=== PATIENT | female | born 1985 | race Caucasian/White ===

== ENCOUNTER → 2016-07-31 | Outpatient (CLI) | payer BC ==
[~2016-07-31] MED LIST: CPR500 PO; DOCU100C31 PO; MTR500 PO; MTR600X PO; OXYC-57 PO; PRENTAB26 PO; SERT50TA PO
[2016-07-31 10:50] LABS: ALT/SGPT 18 U/L (12-78); BLOOD UREA NITROGEN 10 mg/dl (7-18); BUN/CREATININE RATIO 15.8 (10-20); CALCIUM 8.9 mg/dl (8.5-10.1); CARBON DIOXIDE 26 mmol/L (21-32); CHLORIDE 103 mmol/L (98-107); CHOLESTEROL 164 mg/dl (0-200); CREATININE 0.64 mg/dl (0.60-1.20); GLUCOSE 101 mg/dl (70-99); POTASSIUM 3.7 mmol/L (3.5-5.1); SODIUM 140 mmol/L (136-145)
[2016-07-31 11:03] LABS: ALKALINE PHOSPHATASE 84 U/L (45-117); AST/SGOT 14 U/L (15-37); CHOLESTEROL/HDL RATIO 2.7; HDL CHOLESTEROL 61 mg/dl; LDL CHOLESTEROL CALCULATED 94 mg/dl; TRIGLYCERIDES 46 mg/dl (0-150); VERY LOW DENSITY LIPOPROT CALC 9 mg/dl
== END | disposition home or self-care (01) ==
LOC: C.LABSPEC 16:28
PROVIDERS: ATTEND Family Medicine
DX: Z00.00 Encounter for general adult medical examination without abnormal findings (principal)

== ENCOUNTER → 2016-09-05 | Outpatient (CLI) | payer BC, OTHER ==
[2016-09-05 08:40] LABS: URINE APPEARANCE CLEAR (CLEAR); URINE BILIRUBIN NEG (NEG); URINE COLOR YELLOW; URINE NITRITE NEG (NEG); URINE PH 6.5 (4.5-7.5); UROBILINOGEN NEG (NEG)
[2016-09-05 08:52] LABS: MANUAL MICROSCOPIC REQUIRED? NO; REVIEW REQ? NO
[2016-09-05 09:20] LABS: PARTIAL THROMBOPLASTIN RATIO 1.1; PROTHROMBIN TIME (PATIENT) 10.7 SECONDS (9.0-12.0)
[2016-09-05 09:25] LABS: ALT/SGPT 17 U/L (12-78); AST/SGOT 11 U/L (15-37); BLOOD UREA NITROGEN 13 mg/dl (7-18); BUN/CREATININE RATIO 23.4 (10-20); CALCIUM 8.8 mg/dl (8.5-10.1); CARBON DIOXIDE 30 mmol/L (21-32); CHLORIDE 106 mmol/L (98-107); CREATININE 0.54 mg/dl (0.60-1.20); GLUCOSE 70 mg/dl (70-99); POTASSIUM 3.7 mmol/L (3.5-5.1); SODIUM 141 mmol/L (136-145)
[2016-09-05 09:28] LABS: ALB/GLOB RATIO 1.1 (0.9-2); ALKALINE PHOSPHATASE 73 U/L (45-117)
[2016-09-07 13:52] LABS: QUANTIF TB AG-NIL <0.00 IU/ML; QUANTIFERON NIL 0.08 IU/ML
--- NOTE | 2016-09-17 08:11 | CODING QUERY NO DIAGNOSIS ---
TREATMENT RENDERED WITHOUT A DIAGNOSIS : 1985 To promote full compliance with coding requirements relating to patient care, physician participation is requested in all cases of negative turner uncertainty. Please assist us with providing a diagnosis/symptom for the test(s) below: A diagnosis/symptom was not documented on your Order. A valid diagnosis/symptom is required to bill all insurances. Please remember that we are unable to code a diagnosis of rule out, probable, possible, questionable, or suspected. Tests that require a diagnosis: DOS: 09/05/16 * COMPREHENSIVE METABO DIAGNOSIS: * PROTHROMBIN TIME PRO DIAGNOSIS: * PTT DIAGNOSIS: * UA CLEAN CATCH W/ CA DIAGNOSIS: * GLUC LESTER 2HR 75g NON DIAGNOSIS: Provider Signature: Date: Thank you Cande Wall Health Information Management Once completed, please kindly fax back to [phone] For questions please call [phone]
== END | disposition home or self-care (01) ==
LOC: C.LAB 08:00
PROVIDERS: ATTEND Surgery
DX: Z00.5 Encounter for examination of potential donor of organ and tissue (principal)

== ENCOUNTER → 2016-09-20 | Outpatient (CLI) | payer BC | END | disposition home or self-care (01) | LOC: C.LAB 07:29 | PROVIDERS: ATTEND Obstetrics & Gynecology | DX: N92.6 Irregular menstruation, unspecified (principal) ==

== ENCOUNTER → 2016-11-15 | Outpatient (CLI) | payer BC ==
[2016-11-15 08:48] LABS: BASO % 0.4 %; BASO ABS # 0.02 K/uL (0-0.2); COMPLETE YES; EOS % 9.1 %; HEMATOCRIT 42.2 % (37-47); LYMPH % 29.3 %; LYMPH ABS # 1.62 K/uL (1.2-3.4); MEAN CELL VOLUME 85.8 fL (80-100); MEAN CORPUSCULAR HEMOGLOBIN 28.3 pg (25-34); MEAN CORPUSCULAR HGB CONC 32.9 g/dl (32-36); MEAN PLATELET VOLUME 9.6 fL (7.4-10.4); MONO % 9.8 %; NEUT % 51.4 %; PLATELET COUNT 296 K/uL (130-400); RED BLOOD COUNT 4.92 M/uL (4.2-5.4); WHITE BLOOD COUNT 5.52 K/uL (4.8-10.8)
[2016-11-15 09:04] LABS: CALCIUM 8.5 mg/dl (8.5-10.1)
[2016-11-15 09:08] LABS: BLOOD UREA NITROGEN 14 mg/dl (7-18); BUN/CREATININE RATIO 18.7 (10-20); CARBON DIOXIDE 27 mmol/L (21-32); CHLORIDE 107 mmol/L (98-107); CREATININE 0.75 mg/dl (0.60-1.20); GLUCOSE 76 mg/dl (70-99); POTASSIUM 3.5 mmol/L (3.5-5.1); SODIUM 142 mmol/L (136-145)
== END ==
LOC: C.LAB 12:30
PROVIDERS: ATTEND Obstetrics & Gynecology
DX: Z01.812 Encounter for preprocedural laboratory examination (principal)

== ENCOUNTER 2016-11-26 07:34 | Inpatient (IN) | payer BC ==
[2016-11-19 12:14] VITALS: BMI 25.0
[~2016-11-26] VITALS: Ht 167.6 cm; Wt 72.3 kg
[2016-11-26] VITALS (7 sets, daily range): BP systolic 92–113; BP diastolic 51–68; PULSE 77–88; TEMP 36.7–36.9; O2SAT 94–97; Ht 167.6 cm; Wt 72.3 kg
[~2016-11-26 07:34] MED LIST changes: +ATROPINE SULFATE 0.1 MG/ML 5ML SYR IV PRN; +CIPROFLOXACIN / D5W 400 MG IV SCH; +CLINDAMYCIN 600 MG/54 ML D5W 50 ML IV SCH; -CPR500 PO; +DEXAMETHASONE SOD INJ 4 MG/ML VIAL ONE; -DOCU100C31 PO; +EpHEDrine SULFATE 50MG/5ML SYR ONE; +EpHEDrine SULFATE INJ 50 MG/ML AMP IV PRN; +FENTANYL CITRATE INJ 50 MCG/1 ML 2 ML VIAL ONE; +GLYCOPYRROLATE INJ 0.2 MG/ML VIAL ONE; +HYDROmorphone INJ 1 MG/ML SYR IV PRN; +KETOROLAC TROMETHAMINE 30 MG/ML VIAL ONE; +LACTATED RINGER'S 1000ML 1,000 ML IV SCH; +LACTATED RINGER'S 1000ML 500 ML IV ONE; +LARYING-O-JET KIT (LTA) ONE; +LIDOCAINE HCL 2% 2 ML VIAL (20MG/ML) ONE; +MIDAZOLAM HCL 1 MG/ML 2ML VIAL ONE; -MTR500 PO; -MTR600X PO; +NEOSTIGMINE METHYLSULFATE 5 MG/5 ML SYR ONE; +ONDANSETRON INJ 2 MG/ML 2 ML VIAL IV PRN; +ONDANSETRON INJ 2 MG/ML 2 ML VIAL ONE; -OXYC-57 PO; -PRENTAB26 PO; +PROPOFOL IV EMULSION 10 MG/ML 20 ML VIAL IV ONE; +ROCURONIUM BROMIDE 10 MG/ML 5 ML VIAL ONE
[2016-11-26] MEDS ORDERED: BUPIVACAINE 0.5 % 5 MG/1 ML MPF 30ML VIAL ONE (08:11)
--- NOTE | 2016-11-26 08:31 | History & Physical Bridge Note ---
H&P Re-Evaluation Bridge Note: I have examined the patient, reviewed the History & Physical and in the interval since the performance of the History & Physical I have noted the following changes of clinical significance: No changes noted
[2016-11-26] MEDS ORDERED: FENTANYL CITRATE INJ 50 MCG/1 ML 2 ML VIAL ONE (09:29)
[2016-11-26] MEDS ORDERED: METHYLENE BLUE 1% 10 ML VIAL ONE (09:53)
[2016-11-26] MEDS ORDERED: TISSEEL FIBRIN SEALANT 4ML TOP ONE (10:23)
[2016-11-26] MEDS ORDERED: LACTATED RINGER'S 1000ML 1,000 ML IV SCH (10:32)
[2016-11-26] MEDS ORDERED: D5W AND LACTATED RINGERS 1,000 ML IV SCH (10:32)
--- NOTE | 2016-11-26 10:34 | Discharge Instructions ---
Discharge Instructions Date of Service Nov 26, 2016. Admission Reason for Admission: Pelvic Pain, Menorrhagia, Ciniii Discharge Discharge Diagnosis / Problem: menorrhagia Discharge Goals Goal(s): Routine recovery after surgery Activity Recommendations Activity Limitations: per Instructions/Follow-up section . Instructions / Follow-Up Instructions / Follow-Up POST OPERATIVE: BOWEL FUNCTION/MEDICATIONS: 1. Constipation pain and discomfort are the most common complaints 5-7 days after surgery. Points 2-6 address the things that can help. 2. Chewing gum can help stimulate the gut and help improve digestion and motility. 3. Milk of Magnesia 1-2 times per day until return of bowel function. 4. Colace is a stool softener that helps. Taking this 2-3 times per day until bowel function returns to normal is highly recommended. 5. Dulcolax is a laxative that may be used if several days have passed without a bowel movement. Alternatively Miralax may be used daily instead. 6. Drink plenty of fluids as this will also reduce constipation. 7. Narcotic pain medications will be prescribed by your physician. They are safe to use and we encourage you to use them. If you are not allergic, ibuprofen will also be prescribed. Many patients will be able to transition off of the narcotic medications to ibuprofen by postoperative day 3. ACTIVITY RECOMMENDATIONS: 1. Get plenty of rest and listen to your body. If you are tired, take a nap. 2. You may shower, but do not take a tub bath until you see your doctor at the 2 week post operative visit. 3. Absolutely NO intercourse and nothing in the vagina until you are examined by your doctor at the 6 week visit. At that visit it will be determined when such activities can be resumed. This can range from 6-12 weeks after your surgery depending on healing time. 4. The main physical activity in the first week should be walking. By the second week you can slowly increase activity. There are no limits on walking up and down stairs. 5. Do not lift more than 5-10 lbs for 4 weeks. Remember the "one-handed rule", i.e. if you can lift something with only one hand it's likely okay. 6. Minimize fish straightener like vacuuming and exercising for 4 weeks. "Overdoing it" can lead to incisions not healing, pain and vaginal bleeding , so again, listen to your body. 7. Driving can be resumed when you feel able. Do not drive within 24 hours of taking a narcotic medication. EXPECTATIONS: 1. Vaginal spotting, bleeding and discharge are common after surgery. There may even be an odor to the discharge which is often related to sutures used in the vagina. If you experience heavy vaginal bleeding, call the office number day or night [phone]. 2. Bladder discomfort is common after surgery from the catheter. This usually resolves in 1-2 weeks. 3. By the end of the 3rd or 4th week you should be feeling much better. It may take up to 6 weeks for your energy levels to return to normal. 4. Narcotic medications have side effects such as: dizziness, headache, nausea and/or vomiting. If you suspect your pain medication is causing problems, call our office and we may be able to prescribe an alternate medication. 5. The skin incisions are often covered with a liquid bandage. This will gradually peel off over time. CALL THE OFFICE IF YOU HAVE ANY OF THE FOLLOWIN. Temperature of 101 degrees or higher. 2. Severe abdominal or pelvic pain not relieved by pain medication. 3. Persistent nausea or vomiting. 4. Increased pain with urination or difficulty urinating. 5. Bright red bleeding that soaks more than 1 pad per hour. CONTACT PHONE NUMBERS: Main Office: [phone] Surgical Nurse: [phone] extension [phone] Avoid all tobacco products. If you need help to stop smoking, call [place]'s FREE QUITLINE at . This is a free call. Current Hospital Diet Patient's current hospital diet: Discharge Diet Recommended Diet: Regular Diet Procedures Procedures Performed: Total Laparoscopic Hysterectomy, bilateral salpingectomy with use of Davinci, cystoscopy. Pending Studies Studies pending at discharge: no Medical Emergencies . Who to Call and When: Medical Emergencies: If at any time you feel your situation is an emergency, please call 911 immediately. . Non-Emergent Contact Non-Emergency issues call your: Computer Education Teacher . . "Provider Documentation" section prepared by Harman Singleton. . VTE Core Measure Inpt VTE Proph given/why not?: Amrit Prado, SCD's
[2016-11-26] MEDS ORDERED: MTR600X PO (10:35)
[2016-11-26] MEDS ORDERED: OXYC-57 PO (10:35)
--- NOTE | 2016-11-26 10:43 | [facility] Operative Report ---
Operative Report Operative Date Nov 26, 2016. Pre-Operative Diagnosis Severe menorrhagia, pelvic pain. Post-Operative Diagnosis same Procedure(s) Performed TLH, bilateral salpingectomy, cystoscopy Surgeon Dr. Singleton Emergency Dispatch Operator Surgeon(s) None Estimated Blood Loss 20ml Findings Patient was given a general anesthetic preoperative antibiotics as well prepped and draped in dorsolithotomy position in yellowfin Jono stirrups. Bladder drained with Bell catheter the V care attached to the cervix. Procedure is begun by making a subumbilical incision with the scalpel using open Technique We Did a Cut down Cutting down through Subcutaneous Fat to the Fascia in the Midline Splitting the Rectus Muscles and Entering the Peritoneal Cavity without Difficulty. 2 Natural Bridge Stitches Are Placed in the Fascia of 0 Vicryl and Then Blunt Tipped Trocar Placed Balloon Then Inflated with Air and Then CO2 Gas to Insufflate the Abdomen Findings Upper Abdomen Normal No Sign of Visceral Organ Injury Deep Trendelenburg Position and Obtained the Uterus Appeared Normal As Did the Adnexa There Was No Evidence of Endometriosis or Scarring. Placed 2 Robotic Ports One on the Left One on the Right and Then a Left Upper Quadrant Accessory Port Non-Bladed. Robot Was Then Docked Arm #1 Was the Monopolar Robert and Arm #2 was bipolar [place]. Using the V care we could manipulate the uterus fairly easily identified the ureter location on both left and right sides seem to follow a normal course. Remove the fallopian tubes in the usual fashion and then removed the separately through the accessory ports. Identified the blood supply of the utero-ovarian coagulated this distal to the left ovary and then cut this most monopolar robert. Same process with the round ligament uterine vessels were then skeletonized bladder flap was sharply dissected away. We then coagulated the left uterine vein and artery with the bipolar [place]. This was then cut. We were well away from the ureter at this stage. The exact same process was followed on the right once both uterine vessels had been secured we made an anterior colpotomy with the monopolar robert. This was then completed to separate the cervix from the vagina uterus was then pulled into the vagina and removed. 8 sponge in a glove was then placed to maintain pneumoperitoneum Instrument exchange was then done. An EGA needle powder truck driver placed in arm #1 arm # 2 was the [employer] grasper. Using a 12 inch 20V LOC 90 day suture we close the cuff from left to right aqua right to left taking care to ensure at least 1 cm full-thickness bites of vaginal mucosa. Suture was then cut so there was no detail and needle removed for the accessory port after generous irrigation and suction we then performed cystoscopy. Bell catheter removed and cystoscope performed bladder appeared normal and were no sutures or defects or lesions and good strong jets of bluish dye from both left and right ureter openings. Cystoscope removed and a new Bell catheter placed sponge and been removed and glove from the vagina already. At this stage we then went back to the robotic console and we used 4 mL of Tisseel for hemostasis hemostasis was excellent at this stage. Should be noted we suction irrigated prior to this. This stage we then undocked and removed the instruments and undocked the robot. Gas was allowed to escape ports were removed and incisions injected with 0.5% Marcaine that should also be noted we did a low CO2 test prior to removing the camera and things were hemostatic. Incision at the umbilicus the fascia was closed with 0 Vicryl same process in the left upper quadrant incision and then 4-0 subcuticular Monocryl closures with Dermabond applied urine clear at the end of the procedure and sponges counts correct Specimens A: Uterus, cervix, bilateral tubes. Drains Bell Anesthesia General Disposition Recovery Room / PACU I attest to the content of the Intraoperative Record and any orders documented therein. Any exceptions are noted below.
[2016-11-26] MEDS ORDERED: SIMETHICONE 80 MG CHEW PO PRN (10:45)
[2016-11-26] MEDS ORDERED: BISACODYL 10 MG SUPP PR PRN (10:45)
[2016-11-26] MEDS ORDERED: ONDANSETRON INJ 2 MG/ML 2 ML VIAL IV PRN (10:45)
[2016-11-26] MEDS ORDERED: PROMETHAZINE HCL INJ 12.5 MG in SODIUM CHLORIDE 0.9% 50ML 50 ML IV PRN (10:45)
[2016-11-26] MEDS ORDERED: IBUPROFEN 600 MG TAB PO PRN (10:45)
[2016-11-26] MEDS ORDERED: ACETAMINOPHEN 325 MG TAB PO PRN (10:45)
[2016-11-26] MEDS ORDERED: ZOLPIDEM TARTRATE 5 MG TAB PO PRN (10:45)
[2016-11-26] MEDS ORDERED: KETOROLAC TROMETHAMINE 30 MG/ML VIAL IV. PRN (10:45)
[2016-11-26] MEDS ORDERED: PROMETHAZINE HCL INJ 25 MG in SODIUM CHLORIDE 0.9% 50ML 50 ML IV PRN (10:45)
[2016-11-26] MEDS ORDERED: OXYCODONE/ACETAMINOPHEN 5-325 TAB PO PRN ×2 (10:45)
[2016-11-26] MEDS ORDERED: MAGNESIUM HYDROXIDE SUSP 30 ML UDC PO PRN (10:45)
[2016-11-26] MEDS ORDERED: MEPERIDINE HCL 50 MG/ML CARP IV PRN ×2 (10:45)
[2016-11-26] MEDS: FENTANYL CITRATE INJ 50 MCG/1 ML 2 ML VIAL IV PRN ×4 (11:15→11:30)
--- NOTE | 2016-11-26 11:37 | Anesthesiology Progress Note ---
Anesthesia Post Op Note Date & Time Nov 26, 2016 at 11:36 Vital Signs Pain Intensity: 3 Vital Signs Past 12 Hours Date Time Temp Pulse Resp B/P (MAP) Pulse Ox O2 Delivery O2 Flow Rate FiO2 11/26/16 10:59 67 20 98 11/26/16 10:59 67 20 11/26/16 10:55 108/59 11/26/16 10:54 64 13 96 11/26/16 10:54 64 13 11/26/16 10:51 102/58 11/26/16 10:49 61 20 11/26/16 10:49 61 20 94 11/26/16 10:45 108/58 11/26/16 10:44 62 19 80 11/26/16 10:44 62 19 11/26/16 10:41 97/43 11/26/16 10:39 36.0 69 16 97/43 99 Mask 10 11/26/16 10:39 74 15 11/26/16 10:39 75 15 99 11/26/16 07:49 36.9 77 20 101/58 (72) 97 Room Air Notes Mental Status: alert / awake / arousable, participated in evaluation Pt Amnestic to Procedure: Yes Nausea / Vomiting: adequately controlled Pain: adequately controlled Airway Patency, RR, SpO2: stable & adequate BP & HR: stable & adequate Hydration State: stable & adequate Anesthetic Complications: no major complications apparent
[2016-11-26] MEDS ORDERED: IV FLUIDS COMPLETED PRN (14:15)
[2016-11-26] MEDS ORDERED: DOCUSATE SODIUM 100 MG CAP PO SCH (21:00)
[2016-11-27] MEDS ORDERED: ENOXAPARIN 40 MG/0.4 ML SYR SQ SCH (09:00)
--- NOTE | 2016-12-01 08:13 | Discharge Summary ---
Discharge Summary Date of Service Dec 01, 2016. Discharge Summary Patient had a laparoscopic hysterectomy on 11/26/2016 this was uncomplicated. Patient was ambulating tolerating an oral diet and voiding had no extremity pain pain was well controlled minimal bleeding Physical exam vital signs stable afebrile Impression and plan discharge home on the same day of surgery Percocet and Motrin discharge instructions reviewed
== END 2016-11-26 17:50 | disposition home or self-care (01) | DRG 741 ==
LOC: C.ACU 07:34 → UNDOADMOB 10:33 → C.MS4N 10:33 → INTOOBSV 10:33 → OBSVTOIN 10:33 → ENRESERV 11:29 → UNDOADMOB 12:15 → C.MS4N 12:15 → UNDODISOB 17:50
PROVIDERS: ADMIT Obstetrics & Gynecology; ATTEND Obstetrics & Gynecology
PROC: 0UTC7ZZ Resection of Cervix, Via Natural or Artificial Opening (ICD-10-PCS; principal; 2016-11-26 09:10)
PROC: 0UT7FZZ Resection of Bilateral Fallopian Tubes, Via Natural or Artificial Opening With Percutaneous Endoscopic Assistance (ICD-10-PCS; principal; 2016-11-26 09:10)
PROC: 0UT9FZZ Resection of Uterus, Via Natural or Artificial Opening With Percutaneous Endoscopic Assistance (ICD-10-PCS; principal; 2016-11-26 09:10)
PROC: 8E0W4CZ Robotic Assisted Procedure of Trunk Region, Percutaneous Endoscopic Approach (ICD-10-PCS; principal; 2016-11-26 09:10)
DX: D06.9 Carcinoma in situ of cervix, unspecified (principal); R10.2 Pelvic and perineal pain; N92.0 Excessive and frequent menstruation with regular cycle; Z97.5 Presence of (intrauterine) contraceptive device; Z87.891 Personal history of nicotine dependence; Z79.899 Other long term (current) drug therapy

== ENCOUNTER → 2017-01-07 | Outpatient (CLI) | payer BC ==
[~2017-01-07] MED LIST changes: -ATROPINE SULFATE 0.1 MG/ML 5ML SYR IV PRN; -CIPROFLOXACIN / D5W 400 MG IV SCH; -CLINDAMYCIN 600 MG/54 ML D5W 50 ML IV SCH; +CPR500 PO; -DEXAMETHASONE SOD INJ 4 MG/ML VIAL ONE; -EpHEDrine SULFATE 50MG/5ML SYR ONE; -EpHEDrine SULFATE INJ 50 MG/ML AMP IV PRN; -FENTANYL CITRATE INJ 50 MCG/1 ML 2 ML VIAL ONE; -GLYCOPYRROLATE INJ 0.2 MG/ML VIAL ONE; -HYDROmorphone INJ 1 MG/ML SYR IV PRN; -KETOROLAC TROMETHAMINE 30 MG/ML VIAL ONE; -LACTATED RINGER'S 1000ML 1,000 ML IV SCH; -LACTATED RINGER'S 1000ML 500 ML IV ONE; -LARYING-O-JET KIT (LTA) ONE; -LIDOCAINE HCL 2% 2 ML VIAL (20MG/ML) ONE; -MIDAZOLAM HCL 1 MG/ML 2ML VIAL ONE; +MTR500 PO; +MTR600X PO; -NEOSTIGMINE METHYLSULFATE 5 MG/5 ML SYR ONE; -ONDANSETRON INJ 2 MG/ML 2 ML VIAL IV PRN; -ONDANSETRON INJ 2 MG/ML 2 ML VIAL ONE; +OXYC-57 PO; -PROPOFOL IV EMULSION 10 MG/ML 20 ML VIAL IV ONE; -ROCURONIUM BROMIDE 10 MG/ML 5 ML VIAL ONE
== END | disposition home or self-care (01) ==
LOC: C.LAB 10:02
PROVIDERS: ATTEND Internal Medicine Hematology & Oncology
DX: J02.9 Acute pharyngitis, unspecified (principal)

== ENCOUNTER 2017-01-30 12:22 | Observation (INO) | payer BC ==
[~2017-01-30] VITALS: Ht 170.2 cm; Wt 66.0 kg
[~2017-01-30 12:22] MED LIST changes: -CPR500 PO; -MTR500 PO
[2017-01-30] MEDS ORDERED: LACTATED RINGER'S 1000ML 1,000 ML IV SCH ×2 (12:51→14:40)
[2017-01-30 13:03] LABS: HEMATOCRIT 41.7 % (37-47); MEAN CELL VOLUME 84.2 fL (80-100); MEAN CORPUSCULAR HEMOGLOBIN 28.7 pg (25-34); MEAN CORPUSCULAR HGB CONC 34.1 g/dl (32-36); MEAN PLATELET VOLUME 9.2 fL (7.4-10.4); PLATELET COUNT 308 K/uL (130-400); RED BLOOD COUNT 4.95 M/uL (4.2-5.4); WHITE BLOOD COUNT 12.63 K/uL (4.8-10.8)
[2017-01-30 13:23] LABS: BUN/CREATININE RATIO 17.8 (10-20); CALCIUM 9.3 mg/dl (8.5-10.1); CREATININE 0.69 mg/dl (0.60-1.20); POTASSIUM 3.6 mmol/L (3.5-5.1)
[2017-01-30] MEDS ORDERED: MIDAZOLAM HCL 1 MG/ML 2ML VIAL ONE (13:25)
[2017-01-30] MEDS ORDERED: FENTANYL CITRATE INJ 50 MCG/1 ML 2 ML VIAL ONE (13:25)
[2017-01-30] MEDS ORDERED: ATROPINE SULFATE 0.1 MG/ML 5ML SYR IV PRN (13:30)
[2017-01-30] MEDS ORDERED: EpHEDrine SULFATE INJ 50 MG/ML AMP IV PRN (13:30)
[2017-01-30] MEDS ORDERED: ONDANSETRON INJ 2 MG/ML 2 ML VIAL IV PRN ×3 (13:30→14:45)
--- NOTE | 2017-01-30 13:33 | HISTORY & PHYSICAL EXAMINATION ---
DATE OF ADMISSION: 01/30/2017 HISTORY OF PRESENT ILLNESS: Alicia had a total laparoscopic hysterectomy 11/26/2016 thus she is about 9 weeks from surgery. She was doing exceptionally well and had normal activity and then last night she had vaginal intercourse for the first time and felt pain afterwards. She also had some significant bleeding as well. The pain somewhat improved and she went to work this morning. However, I spoke to her after hearing about this from nursing and advised the patient to go to the ER. The patient reports that the pain was 6/10. She felt it in her lower abdomen. No nausea. She did not feel feverish. She has no other urinary symptoms. States she did have a bowel movement this morning. PAST MEDICAL HISTORY: Healthy. PAST SURGICAL HISTORY: Prior total laparoscopic hysterectomy in November with conservation of ovaries. MEDICATIONS: None. DRUG ALLERGIES: CECLOR. SOCIAL HISTORY: Nonsmoker, nondrinker. FAMILY HISTORY: Noncontributory. PHYSICAL EXAMINATION: VITAL SIGNS: Stable. Her temperature is 36.8 degree Celsius. CHEST: Clear. CARDIOVASCULAR: Normal rate and rhythm. No audible murmur. ABDOMEN: Tender. There are bowel sounds. No masses palpated. PELVIC: Done with nursing. Using a sterile spec I was able to visualize the vagina. There is some discharge at the top of the vagina. There is a small knuckle of bowel and there is a clear vaginal cuff dehiscence. No active bleeding is seen. Exam was stopped at this point. I was able to gently push the bowel up above the vaginal cuff and stopped the exam. IMPRESSION AND PLAN: Nine weeks out from hysterectomy. The patient has a disruption of her vaginal repair, likely related to intercourse. I have advised the patient she needs repair. Discussed vaginal cuff repair. Discussed possible cystoscopy. Discussed possible laparoscopic assessment and discussed possible laparotomy. It does not seem to be any obvious evidence of injury to the bowel, but clearly we will have to assess at the time when she is given a general anesthetic. Discussed the risks of not doing surgery which would be infection and . Discussed the risks of surgery including infection, injury to bowel, bladder, ureter, deep vein thrombosis, pulmonary embolus, and blood loss. Thus, we will make arrangements for a repair of the vaginal cuff dehiscence laceration, possible cystoscopy, possible laparoscopy, possible laparotomy.
[2017-01-30] MEDS ORDERED: BUPIVACAINE 0.5 % 5 MG/1 ML MPF 30ML VIAL ONE (13:34)
[2017-01-30] MEDS ORDERED: D5W IV SCH (14:00)
[2017-01-30] MEDS ORDERED: PREMIXED IV SCH (14:00)
[2017-01-30] MEDS ORDERED: METRONIDAZOLE / NSS 500 MG in PREMIXED NSS 0 ML IV SCH (14:00)
[2017-01-30] MEDS ORDERED: CIPROFLOXACIN IV SCH (14:00)
[2017-01-30] MEDS ORDERED: LARYING-O-JET KIT (LTA) ONE ×2 (14:10)
[2017-01-30] MEDS ORDERED: LIDOCAINE HCL 2% 2 ML VIAL (20MG/ML) ONE (14:10)
[2017-01-30] MEDS ORDERED: ONDANSETRON INJ 2 MG/ML 2 ML VIAL ONE (14:10)
[2017-01-30] MEDS ORDERED: ROCURONIUM BROMIDE 10 MG/ML 5 ML VIAL IV ONE (14:10)
[2017-01-30] MEDS ORDERED: DEXAMETHASONE SOD INJ 4 MG/ML VIAL ONE (14:10)
[2017-01-30] MEDS ORDERED: SUCCINYLCHOLINE CHLORIDE 20 MG/ML 10 ML VIAL IV ONE (14:10)
[2017-01-30] MEDS ORDERED: PROPOFOL IV EMULSION 10 MG/ML 20 ML VIAL IV ONE (14:10)
[2017-01-30] MEDS ORDERED: SODIUM CHLORIDE 0.9% 1000ML 1,000 ML IV SCH (14:40)
[2017-01-30] MEDS ORDERED: OXYCODONE/ACETAMINOPHEN 5-325 TAB PO PRN ×2 (14:45)
[2017-01-30] MEDS ORDERED: KETOROLAC TROMETHAMINE 30 MG/ML VIAL IV. PRN (14:45)
[2017-01-30] MEDS ORDERED: ALUMINUM/MAGNESIUM/SIMETH (MAALOX MAX) 30 ML UDC PO PRN (14:45)
[2017-01-30] MEDS ORDERED: IBUPROFEN 600 MG TAB PO PRN (14:45)
[2017-01-30] MEDS ORDERED: ZOLPIDEM TARTRATE 5 MG TAB PO PRN (14:45)
[2017-01-30] MEDS ORDERED: MAGNESIUM HYDROXIDE SUSP 30 ML UDC PO PRN (14:45)
[2017-01-30] MEDS ORDERED: LOPERAMIDE HCL 2 MG CAP PO PRN (14:45)
[2017-01-30] MEDS ORDERED: LORAZEPAM 0.5 MG TAB PO PRN (14:45)
[2017-01-30] MEDS ORDERED: PROMETHAZINE HCL INJ 25 MG in SODIUM CHLORIDE 0.9% 50ML 50 ML IV PRN (14:45)
[2017-01-30] MEDS ORDERED: ACETAMINOPHEN 325 MG TAB PO PRN (14:45)
--- NOTE | 2017-01-30 14:48 | [facility] Operative Report ---
Operative Report Operative Date Jan 30, 2017. Pre-Operative Diagnosis Vaginal Cuff Dehiscense Post-Operative Diagnosis Same as preoperative diagnosis Procedure(s) Performed Repair of Vagina Cuff Dehiscense, Cystoscopy Surgeon Dr. Singleton Group Home Paraprofessional Surgeon(s) None Estimated Blood Loss 20ml Findings Patient was given IV ciprofloxacin and IV metronidazole preop prepped and draped in dorsolithotomy position in yellowfin stirrups. She was placed in deep Trendelenburg position Thorough examination revealed full dehiscence of the vaginal cuff. The bowel was not actually in the vagina at the time of surgery I could see a small knuckle of bowel that was above the vagina however did seem perfectly well perfused. I palpated inside with the finger and could feel no adherent structures or concerns. After generous irrigation with sterile saline I could see no pus stool or other blood. The bowel fully stayed away with deep Trendelenburg position and we then closed the vaginal cuff taking care for good vaginal thickness bites of at least 1 cm of [id number] sutures starting first at each vaginal cuff corner and then [id number] sutures from anterior to posterior vaginal cuff. Multiple stitches were placed approximately 8. At this stage of felt the cuff was well closed We then prepped and performed cystoscopy with the 17 scope normal saline solution. Visualized a normal bladder was no sign of damage or sutures visualized good strong jets of urine from both left and right ureter openings. Cystoscope removed bladder drained reexamining the vagina there was no bleeding no discharge no leakage of urine noted procedure was finished sponge and instrument counts correct Specimens none Drains None Anesthesia General Complication(s) None Disposition Surgical ICU I attest to the content of the Intraoperative Record and any orders documented therein. Any exceptions are noted below.
--- NOTE | 2017-01-30 14:49 | Discharge Instructions ---
Discharge Instructions Date of Service Jan 30, 2017. Admission Reason for Admission: Pain/Bleeding-Recent Hysterectomy Discharge Discharge Diagnosis / Problem: vaginal cuff dehiscence Discharge Goals Goal(s): Routine recovery after surgery Activity Recommendations Activity Limitations: per Instructions/Follow-up section . Instructions / Follow-Up Instructions / Follow-Up POST OPERATIVE: BOWEL FUNCTION/MEDICATIONS: 1. Constipation pain and discomfort are the most common complaints 5-7 days after surgery. Points 2-6 address the things that can help. 2. Chewing gum can help stimulate the gut and help improve digestion and motility. 3. Milk of Magnesia 1-2 times per day until return of bowel function. 4. Colace is a stool softener that helps. Taking this 2-3 times per day until bowel function returns to normal is highly recommended. 5. Dulcolax is a laxative that may be used if several days have passed without a bowel movement. Alternatively Miralax may be used daily instead. 6. Drink plenty of fluids as this will also reduce constipation. 7. Narcotic pain medications will be prescribed by your physician. They are safe to use and we encourage you to use them. If you are not allergic, ibuprofen will also be prescribed. Many patients will be able to transition off of the narcotic medications to ibuprofen by postoperative day 3. ACTIVITY RECOMMENDATIONS: 1. Get plenty of rest and listen to your body. If you are tired, take a nap. 2. You may shower, but do not take a tub bath until you see your doctor at the 2 week post operative visit. 3. Absolutely NO intercourse and nothing in the vagina until you are examined by your doctor at the 6 week visit. At that visit it will be determined when such activities can be resumed. This can range from 6-12 weeks after your surgery depending on healing time. 4. The main physical activity in the first week should be walking. By the second week you can slowly increase activity. There are no limits on walking up and down stairs. 5. Do not lift more than 5-10 lbs for 4 weeks. Remember the "one-handed rule", i.e. if you can lift something with only one hand it's likely okay. 6. Minimize gold plater like vacuuming and exercising for 4 weeks. "Overdoing it" can lead to incisions not healing, pain and vaginal bleeding , so again, listen to your body. 7. Driving can be resumed when you feel able. Do not drive within 24 hours of taking a narcotic medication. EXPECTATIONS: 1. Vaginal spotting, bleeding and discharge are common after surgery. There may even be an odor to the discharge which is often related to sutures used in the vagina. If you experience heavy vaginal bleeding, call the office number day or night [phone]. 2. Bladder discomfort is common after surgery from the catheter. This usually resolves in 1-2 weeks. 3. By the end of the 3rd or 4th week you should be feeling much better. It may take up to 6 weeks for your energy levels to return to normal. 4. Narcotic medications have side effects such as: dizziness, headache, nausea and/or vomiting. If you suspect your pain medication is causing problems, call our office and we may be able to prescribe an alternate medication. 5. The skin incisions are often covered with a liquid bandage. This will gradually peel off over time. CALL THE OFFICE IF YOU HAVE ANY OF THE FOLLOWIN. Temperature of 101 degrees or higher. 2. Severe abdominal or pelvic pain not relieved by pain medication. 3. Persistent nausea or vomiting. 4. Increased pain with urination or difficulty urinating. 5. Bright red bleeding that soaks more than 1 pad per hour. CONTACT PHONE NUMBERS: Main Office: [phone] Surgical Nurse: [phone] extension [phone] Avoid all tobacco products. If you need help to stop smoking, call [place]'s FREE QUITLINE at . This is a free call. Current Hospital Diet Patient's current hospital diet: Regular Diet Discharge Diet Recommended Diet: Regular Diet Procedures Procedures Performed: Repair of Vagina Cuff Dehiscense, Cystoscopy Pending Studies Studies pending at discharge: no Medical Emergencies . Who to Call and When: Medical Emergencies: If at any time you feel your situation is an emergency, please call 911 immediately. . Non-Emergent Contact Non-Emergency issues call your: Magnetic Resonance Imaging Coordinator . . "Provider Documentation" section prepared by Harman Singleton. . VTE Core Measure Inpt VTE Proph given/why not?: Amrit Prado, SCD's
[2017-01-30] MEDS ORDERED: CPR500 PO (14:50)
[2017-01-30] MEDS ORDERED: OXYC-57 PO (14:50)
[2017-01-30] MEDS ORDERED: MTR500 PO (14:50)
[2017-01-30] MEDS: FENTANYL CITRATE INJ 50 MCG/1 ML 2 ML VIAL IV PRN ×3 (14:54→15:04)
--- NOTE | 2017-01-30 15:11 | Anesthesiology Progress Note ---
Anesthesia Post Op Note Date & Time Jan 30, 2017 at 15:10 Vital Signs Pain Intensity: 6.0 Vital Signs Past 12 Hours Date Time Temp Pulse Resp B/P (MAP) Pulse Ox O2 Delivery O2 Flow Rate FiO2 01/30/17 15:00 99 16 109/68 100 Oxymask 5 01/30/17 14:50 36.1 98 16 116/76 100 Oxymask 10 01/30/17 13:13 90 20 119/67 100 01/30/17 13:09 89 20 119/67 100 Room Air 01/30/17 12:26 36.8 96 20 115/60 100 Room Air Notes Mental Status: alert / awake / arousable, participated in evaluation Pt Amnestic to Procedure: Yes Nausea / Vomiting: adequately controlled Pain: adequately controlled Airway Patency, RR, SpO2: stable & adequate BP & HR: stable & adequate Hydration State: stable & adequate Anesthetic Complications: no major complications apparent
[2017-01-30] MEDS ORDERED: IV FLUIDS COMPLETED PRN (15:15)
[2017-01-30] MEDS ORDERED: HYDROmorphone INJ 1 MG/ML SYR ONE (15:44)
[2017-01-30] MEDS ORDERED: NURSING VERBAL MED ORDER ONE (15:45)
[2017-01-30] MEDS ORDERED: HYDROmorphone INJ 0.5 MG/0.5 ML SYR IV PRN (16:00)
[2017-01-30 16:25] VITALS: BP 118/60; PULSE 99; TEMP 37.2; O2SAT 97; Ht 170.2 cm; Wt 66.0 kg
[2017-01-30 16:55] VITALS: BP 125/70; PULSE 104; O2SAT 97
[2017-01-30 17:25] VITALS: BP 112/53; PULSE 108; O2SAT 97
[2017-01-30] MEDS ORDERED: METRONIDAZOLE 500 MG TAB PO SCH (17:30)
[2017-01-30] MEDS ORDERED: CIPROFLOXACIN 500 MG TAB PO SCH (17:30)
[2017-01-30 18:22] VITALS: BP 112/53; PULSE 108; TEMP 37.2; O2SAT 97
[2017-01-30 18:25] VITALS: BP 114/74; PULSE 97; TEMP 37.1; O2SAT 97
--- NOTE | 2017-02-04 19:28 | DISCHARGE SUMMARY ---
Alicia was admitted for observation on 01/30/2017. Patient was 9 weeks out from surgery and had a vaginal cuff dehiscence; this was after intercourse. Patient was repaired surgically in the OR with vaginal cuff closure. Operative note is in the record. Her course in hospital was that she stayed approximately 4 or 5 hours afterwards until dinnertime. She was ambulating and her pain had improved substantially. She was able to void and she was passing flatus. She had no vaginal bleeding. PHYSICAL EXAMINATION: VITAL SIGNS: Stable. She was afebrile. IMPRESSION AND PLAN: Cuff dehiscence repaired surgically by a vaginal approach. The patient told to follow up in the office with Dr. Singleton and given oral antibiotics Cipro and Flagyl.
== END 2017-01-30 18:55 | disposition home or self-care (01) ==
LOC: C.EDB 12:24 → C.MS4N 14:43 → ENRESERV 15:45
PROVIDERS: ADMIT Obstetrics & Gynecology; ATTEND Obstetrics & Gynecology
DX: N99.3 Prolapse of vaginal vault after hysterectomy (principal)

== ENCOUNTER → 2017-08-13 | Outpatient (CLI) | payer BC ==
[~2017-08-13] MED LIST changes: +CPR500 PO; +MTR500 PO
[2017-08-13 09:04] LABS: INFLUENZA A PCR Neg for Influ A (NEG)
[2017-08-13 09:05] LABS: INFLUENZA B PCR POS for Influ B (NEG)
--- NOTE | 2017-08-21 09:26 | CODING QUERY NO DIAGNOSIS ---
TREATMENT RENDERED WITHOUT A DIAGNOSIS 85 To promote full compliance with coding requirements relating to patient care, physician participation is requested in all cases of security sales consultant uncertainty. Please assist us with providing a diagnosis/symptom for the test(s) below: A diagnosis/symptom was not documented on your Order. A valid diagnosis/symptom is required to bill all insurances. Please remember that we are unable to code a diagnosis of rule out, probable, possible, questionable, or suspected. DOS 08/13/17 Tests that require a diagnosis: * PCR INFLUENZA A OR B DIAGNOSIS: *ON YOUR ORDER YOU HAVE DX CODE R50.00, THAT IS AN INVALID CODE, PLEASE ADD CORRECT CODE Provider Signature: Date: Thank you Wendy De La Torre Health Information Management Once completed, please kindly fax back to [phone] For questions please call [phone]
== END | disposition home or self-care (01) ==
LOC: C.LAB 13:28
PROVIDERS: ATTEND Internal Medicine Hematology & Oncology
DX: J11.1 Influenza due to unidentified influenza virus with other respiratory manifestations (principal); J02.9 Acute pharyngitis, unspecified